=== PATIENT | male | born 1995 | race Caucasian/White ===

== ENCOUNTER 2025-03-29 20:06 | Emergency (ER) | payer BC, SELFPAY ==
[2025-03-29 20:09] VITALS: BP 133/89; PULSE 94; RESP 18; TEMP 37.1; O2SAT 97; BMI 26.2
--- NOTE | 2025-03-29 20:09 | ED_ITS ---
HPI - Skin/Abscess/Foreign Bdy General Chief complaint: Wound/Laceration Stated complaint: Lac - left pinky Time Seen by Provider: 03/30/25 00:02 Source: patient Limitations: no limitations History of Present Illness ED Provider: Ester Green PA-C HPI narrative: 29 yo M presenting to the ED c/o laceration to Left 5th digit s/p cutting on broom handle that broke off PHYSICIAN IN [facility]. Tetanus UTD. Related Data Allergies Allergy/AdvReac Type Severity Reaction Status Date / Time No Known Allergies Allergy Verified 03/29/25 20:15 PMF Social History Social History Unable to assess alcohol history related to: Unknown Smoked in Last 30 Days: No Use of substances other than those prescribed or required for medical reasons: No Advance Directives: No Advance Directives Information Provided: Yes Physical Exam Vital Signs: Vital Signs: Last Vital Signs Temp 98.5 F 03/30/25 01:15 Pulse 94 03/30/25 01:15 Resp 16 03/30/25 01:15 BP 157/97 H 03/30/25 01:15 Pulse Ox 99 03/30/25 01:15 O2 Del Method Room Air 03/30/25 01:15 BMI result Body Mass Index 26.2 Const: Other: Alert well-appearing Orientation/consciousness: patient oriented x3 Resp: Effort & Inspection: normal respiratory effort Cardio: Other: Normal peripheral perfusion Skin: Other: Warm dry no rash Neuro: General: patient oriented x3, gait normal, no focal motor deficits and CN's II-XI intact bilaterally Extrem: Other: 5 cm overall laceration that has a regul ar not bleeding, noted over palmar aspect of left 5th digit mildly bleeding Course Course Course Narrative: This is a Rapid Medical Exam performed in triage by Karina Perez PA-C. Full HPI, ROS and PE to be performed by primary ED provider. 29 yo M presenting to the ED c/o laceration to Left 5th digit s/p cutting on broom handle that broke off [facility]YSICIAN IN [facility]. Tetanus UTD. PE: +2.5 cm jagged laceration noted to left 5th digit palmar aspect w/active bleeding. NV intact Plan: Needs suture repair Medications Administered Discontinued Medications Generic Name Dose Route Start Last Admin Trade Name Freq PRN Reason Stop Dose Admin Lidocaine/Epinephrine 10 ml 03/30/25 00:02 03/30/25 00:36 Lidocaine Hcl 1%/Epi 1:100,000 10 Ml Vial INFILTRATI 03/30/25 00:03 10 ml ONCE ONE Administration Medical Decision Making Medical Decision Making [facility] Narrative: 29 yo M presenting to the ED c/o laceration to Left 5th digit s/p cutting on broom handle that broke off [facility]YS[facility]IAN IN [facility]. Tetanus UTD. No chronic issues History: Per patient I have considered the following differential diagnoses: Laceration, abrasion, contusion, excoriation, open fracture Plan: The laceration is superficial, we will repair, tetanus up-to-date, no indication for imaging Procedures Laceration Laceration 1: Site: hand Side (If applicable): left Size (cm): 5 Description: irregular Depth: simple, single layer Local Anesthetic: lidocaine 1% and with epi Amount of anesthesia used (mL): 2 Pre-repair: irrigated extensively Skin layer closed with: nylon Size (cm): 5-0 Number of sutures: 14 Discharge Plan Discharge Clinical Impression: Laceration of left little finger Patient Disposition: Home, Self-Care Instructions: Finger Laceration (ED) Additional Instructions: 14 sutures were used to repair the laceration. They can be removed in 7 days. Watch for signs of infection which would include redness, swelling, warmth, pus draining from the site, red line tracking up into your armpit, or fever. If you develop any of these symptoms, seek medical attention. Otherwise contact your primary care provider for suture removal. Interventions: ED Discharge Assessment Last Done: 03/30/25 01:15 Discharge Date/Time: 03/30/25 01:15 Print Language: Portuguese
[2025-03-29 21:06] VITALS: BP 157/97; PULSE 94; RESP 16; TEMP 36.9; O2SAT 99
[2025-03-30] MEDS: Lidocaine HCl 1%/Epi 1:100,000 10 ML VIAL INFILTRATI (00:36)
[2025-03-30 01:15] VITALS: BP 157/97; PULSE 94; RESP 16; TEMP 36.9; O2SAT 99
== END 2025-03-30 01:15 | disposition home or self-care (01) ==
PROVIDERS: Emergency Provider Emergency Medicine
DX: S61.217A Laceration without foreign body of left little finger without damage to nail, initial encounter (principal); S61.211A Laceration without foreign body of left index finger without damage to nail, initial encounter; W27.8XXA Contact with other nonpowered hand tool, initial encounter; Y93.E5 Activity, floor mopping and cleaning; Y92.9 Unspecified place or not applicable; Y99.9 Unspecified external cause status
CPT/HCPCS: 12002; 99284; J2004